=== PATIENT | male | born 1970 | race American Indian/Alaskan Native ===

== ENCOUNTER 2016-12-12 10:48 | Emergency (ER) | payer SELFPAY ==
[~2016-12-12] VITALS: Ht 177.8 cm; Wt 133.8 kg
[~2016-12-12 10:48] MED LIST: NORPTMEDS CO
[2016-12-12 11:15] VITALS: BP 137/87
[2016-12-12] MEDS ORDERED: ACETAMINOPHEN/CODEINE#3 (300/30mg) TAB PO ONE (12:15)
[2016-12-12] MEDS ORDERED: ACETAMINOPHEN/CODEINE#3 (300/30mg) TAB ONE (12:18)
== END 2016-12-12 12:34 | disposition home or self-care (01) ==
LOC: ER 10:53
DX: S93.602A Unspecified sprain of left foot, initial encounter (principal); Z88.1 Allergy status to other antibiotic agents; M25.572 Pain in left ankle and joints of left foot; G89.29 Other chronic pain; W50.2XXA Accidental twist by another person, initial encounter; Y93.89 Activity, other specified; Y99.8 Other external cause status; Y92.89 Other specified places as the place of occurrence of the external cause
CPT/HCPCS: 73630